=== PATIENT | male | born 1945 | race Caucasian/White ===

== ENCOUNTER 2025-04-30 14:34 | Inpatient (IN) | payer MEDICARE ==
[~2025-04-30] VITALS: Ht 167.6 cm; Wt 70.3 kg
[2025-04-30 14:45] VITALS: O2SAT 96
[2025-04-30] MEDS ORDERED: LOSA50TA39 PO (15:11)
[2025-04-30] MEDS ORDERED: AMLO-212 PO (15:11)
[2025-04-30] MEDS ORDERED: OLAN5TAB3 PO (15:11)
[2025-04-30 15:13] LABS: CALCIUM, SERUM 9.5 mg/dL (8.5-10.1); CREATININE 0.8 mg/dL (0.6-1.3); SODIUM SERUM 143 mmol/L (136-145); UREA NITROGEN, BLOOD 23 mg/dL (7-18)
[2025-04-30 15:14] LABS: PLATELET COUNT (AUTO) 215 K/uL (150-450); RED BLOOD CELL COUNT(AUTO) 4.54 MIL/uL (4.5-6.0); RED CELL DISTRIBUTION WIDTH 12.9 % (11.5-15.0); WHITE BLOOD COUNT (AUTO) 6.4 K/uL (4.3-11.0)
[2025-04-30 15:17] LABS: ASPARTATE AMINOTRANSFERASE 20 U/L (15-37); TOTAL PROTEIN, SERUM 7.3 g/dL (6.4-8.2)
[2025-04-30 15:19] LABS: ALCOHOL, BLOOD < 3 mg/dL (0-10)
[2025-04-30 15:53] LABS: APPEARANCE,URINE CLEAR (CLEAR); BLOOD, URINE TRACE-INTA Ery/uL (NEGATIVE); LEUKOCYTE ESTERASE ,URINE NEGATIVE (NEGATIVE); NITRITE, URINE NEGATIVE (NEGATIVE); UGLUCOSE NEGATIVE (NEGATIVE)
[2025-04-30 16:02] LABS: AMPHETAMINE, URINE NEGATIVE (NEGATIVE); BARBITURATE, URINE NEGATIVE (NEGATIVE); BENZODIAZEPINE, URINE NEGATIVE (NEGATIVE); CANNABINOID, URINE NEGATIVE (NEGATIVE); COCCAINE, URINE NEGATIVE (NEGATIVE); OPIATE, URINE NEGATIVE (NEGATIVE)
[2025-04-30 16:06] LABS: ADD URINE CULTURE NO; SQUAMOUS EPITHELIAL CELL,UR 0-2 /HPF (None Seen)
[2025-04-30] MEDS ORDERED: MAG HYDROX/AL HYDROX/SIMETH 30 ML UDC PO PRN (17:00)
[2025-04-30] MEDS ORDERED: LORAZEPAM 0.5 MG TABLET PO PRN (17:00)
[2025-04-30] MEDS ORDERED: MAGNESIUM HYDROXIDE 30 ML UDC PO PRN (17:00)
[2025-04-30] MEDS: BLOOD SUGAR DIAGNOSTIC 1 EACH STRIP IN ONE (17:29)
[2025-04-30 19:59] VITALS: BP 119/69; TEMP 97.7; O2SAT 98
[2025-05-01 08:00] VITALS: BP 129/72; TEMP 97.8; O2SAT 99
[2025-05-01 08:30] LABS: ASPARTATE AMINOTRANSFERASE 20.0 U/L (15-37); CALCIUM, SERUM 9.5 mg/dL (8.5-10.1); CREATININE 1.4 mg/dL (0.6-1.3); SODIUM SERUM 142.0 mmol/L (136-145); TOTAL PROTEIN, SERUM 7.4 g/dL (6.4-8.2); UREA NITROGEN, BLOOD 37.0 mg/dL (7-18)
[2025-05-01 08:32] LABS: LDL 71 mg/dL (0-99)
[2025-05-01] MEDS: LOSARTAN POTASSIUM 50 MG TABLET PO SCH (08:48)
[2025-05-01] MEDS: AMLODIPINE BESYLATE 5 MG TABLET PO SCH (08:49)
[2025-05-01 16:00] VITALS: BP 132/62; TEMP 98.6; O2SAT 99
[2025-05-01 18:18] LABS: CREATININE 1.0 mg/dL (0.6-1.3)
[2025-05-01 20:58] VITALS: BP 119/80; TEMP 97.5; O2SAT 100
[2025-05-01] MEDS ORDERED: QUETIAPINE FUMARATE 25 MG TABLET PO SCH (22:30)
[2025-05-01] MEDS ORDERED: DIVALPROEX SODIUM 125 MG TABLET.DR PO SCH (22:30)
[2025-05-02] MEDS: TEMAZEPAM 7.5 MG CAPSULE PO PRN (00:05)
[2025-05-02 07:54] VITALS: BP 132/79; TEMP 98.4; O2SAT 98
[2025-05-02] MEDS: DIVALPROEX SODIUM 125 MG TABLET.DR PO SCH (08:52)
[2025-05-02 16:00] VITALS: BP 114/76; TEMP 98.2; O2SAT 98
[2025-05-02 20:00] VITALS: BP 113/68; TEMP 97.8; O2SAT 100
[2025-05-02] MEDS: QUETIAPINE FUMARATE 25 MG TABLET PO SCH (21:24)
[2025-05-03 07:15] LABS: PLATELET COUNT (AUTO) 193 K/uL (150-450); RED BLOOD CELL COUNT(AUTO) 4.31 MIL/uL (4.5-6.0); RED CELL DISTRIBUTION WIDTH 12.8 % (11.5-15.0); WHITE BLOOD COUNT (AUTO) 6.2 K/uL (4.3-11.0)
[2025-05-03 07:33] LABS: ASPARTATE AMINOTRANSFERASE 28.0 U/L (15-37); CALCIUM, SERUM 9.2 mg/dL (8.5-10.1); CREATININE 1.1 mg/dL (0.6-1.3); PHOSPHORUS 3.8 mg/dL (2.5-4.9); SODIUM SERUM 144.0 mmol/L (136-145); TOTAL PROTEIN, SERUM 7.0 g/dL (6.4-8.2); UREA NITROGEN, BLOOD 57.0 mg/dL (7-18)
[2025-05-03 07:51] LABS: CREATINE KINASE, TOTAL 323.0 U/L (39-308)
[2025-05-03 08:00] VITALS: BP 121/60; TEMP 97.8; O2SAT 100
[2025-05-03] MEDS: ENSURE ENLIVE 237 ML LIQUID (VANILLA) PO SCH (13:21)
[2025-05-03 16:00] VITALS: BP 114/62; TEMP 97.9; O2SAT 98
[2025-05-03 20:21] VITALS: BP 124/52; TEMP 97.9; O2SAT 97
[2025-05-04 05:08] LABS: PTH, INTACT 36 pg/mL (15-65)
[2025-05-04 07:18] LABS: PLATELET COUNT (AUTO) 185 K/uL (150-450); RED BLOOD CELL COUNT(AUTO) 4.06 MIL/uL (4.5-6.0); RED CELL DISTRIBUTION WIDTH 12.6 % (11.5-15.0); WHITE BLOOD COUNT (AUTO) 5.8 K/uL (4.3-11.0)
[2025-05-04 07:38] LABS: ASPARTATE AMINOTRANSFERASE 24.0 U/L (15-37); CALCIUM, SERUM 8.7 mg/dL (8.5-10.1); CREATININE 0.9 mg/dL (0.6-1.3); SODIUM SERUM 140.0 mmol/L (136-145); TOTAL PROTEIN, SERUM 6.3 g/dL (6.4-8.2); UREA NITROGEN, BLOOD 48.0 mg/dL (7-18)
[2025-05-04 08:00] VITALS: BP 100/58; TEMP 97.7; O2SAT 98
[2025-05-04 16:00] VITALS: BP 107/60; TEMP 97.5; O2SAT 99
[2025-05-04 22:04] VITALS: BP 96/71; TEMP 97.8; O2SAT 98
[2025-05-05 08:00] VITALS: BP 113/61; TEMP 97.7; O2SAT 99
[2025-05-05 09:21] VITALS: BP 118/69
[2025-05-05 15:56] VITALS: BP 101/51; TEMP 98.2; O2SAT 99
[2025-05-05 16:36] VITALS: BP 106/59
[2025-05-05 20:29] VITALS: BP 103/69; TEMP 98; O2SAT 98
[2025-05-06 08:00] VITALS: BP 140/70; TEMP 97.7; O2SAT 99
[2025-05-06 16:00] VITALS: BP 111/56; TEMP 98.1; O2SAT 99
[2025-05-06 16:01] VITALS: BP 111/56; TEMP 98.1; O2SAT 100
[2025-05-06 20:00] VITALS: BP 110/59; TEMP 97.9; O2SAT 99
[2025-05-06] MEDS: QUETIAPINE FUMARATE 25 MG TABLET PO SCH (21:31)
[2025-05-07 07:10] LABS: *SPE A/G RATIO 1.2 (0.7-1.7); *SPE ALBUMIN 3.6 g/dL (2.9-4.4); *SPE ALPHA-1-GLOBULIN 0.2 g/dL (0.0-0.4); *SPE ALPHA-2-GLOBULIN 0.7 g/dL (0.4-1.0); *SPE BETA GLOBULIN 1.2 g/dL (0.7-1.3); *SPE GLOBULIN, TOTAL 3.0 g/dL (2.2-3.9); *SPE M-SPIKE Not Observed g/dL (Not Observed); *SPE PROTEIN TOTAL 6.6 g/dL (6.0-8.5); *SPEGAMMA GLOBULIN 1.0 g/dL (0.4-1.8)
[2025-05-07 08:00] VITALS: BP 132/71; TEMP 97.7; O2SAT 100
[2025-05-07 16:00] VITALS: BP 111/66; TEMP 98; O2SAT 96
[2025-05-07 20:26] VITALS: BP 122/72; TEMP 98; O2SAT 98
[2025-05-08 08:00] VITALS: BP 106/51; TEMP 98.2; O2SAT 99
[2025-05-08 08:03] LABS: CALCIUM, SERUM 9.1 mg/dL (8.5-10.1); CREATININE 0.8 mg/dL (0.6-1.3); SODIUM SERUM 142.0 mmol/L (136-145); UREA NITROGEN, BLOOD 50.0 mg/dL (7-18)
[2025-05-08 15:00] VITALS: BP 113/70; TEMP 98.1; O2SAT 98
[2025-05-08 20:03] VITALS: BP 139/86; TEMP 98; O2SAT 100
[2025-05-08] MEDS: ACETAMINOPHEN 325 MG TABLET PO PRN (21:10)
[2025-05-09 08:00] VITALS: BP 145/61; TEMP 98.1; O2SAT 98
[2025-05-09 20:00] VITALS: BP 115/69; TEMP 98; O2SAT 100
[2025-05-10 08:00] VITALS: BP 129/70; TEMP 98.6; O2SAT 99
[2025-05-10 16:00] VITALS: BP 107/62; TEMP 97.7; O2SAT 100
[2025-05-10] MEDS: DIVALPROEX SODIUM 125 MG TABLET.DR PO SCH (16:21)
[2025-05-10 20:00] VITALS: BP 124/56; TEMP 97.5; O2SAT 100
[2025-05-10] MEDS: DIVALPROEX SODIUM 125 MG TABLET.DR PO ONE (21:21)
[2025-05-11 08:00] VITALS: BP 120/69; TEMP 97.8; O2SAT 99
[2025-05-11 08:11] LABS: CALCIUM, SERUM 8.7 mg/dL (8.5-10.1); CREATININE 0.7 mg/dL (0.6-1.3); SODIUM SERUM 145.0 mmol/L (136-145); UREA NITROGEN, BLOOD 24.0 mg/dL (7-18)
[2025-05-11 08:58] LABS: VALPROIC ACID 11.0 ug/mL (50-100)
[2025-05-11 16:00] VITALS: BP 143/81; TEMP 97.7; O2SAT 98
[2025-05-11 20:18] VITALS: BP 108/61; TEMP 97.8; O2SAT 96
[2025-05-11] MEDS ORDERED: Z GUARD REMEDY 4 OZ OINT TP PRN (23:00)
[2025-05-12 08:31] VITALS: BP 115/60; TEMP 98.2; O2SAT 99
[2025-05-12] MEDS ORDERED: DIVA125C5 PO (11:17)
[2025-05-12] MEDS ORDERED: QUET25TA PO (11:18)
[2025-05-12 16:00] VITALS: BP 113/61; TEMP 97.9; O2SAT 99
[2025-05-12 20:29] VITALS: BP 96/62; TEMP 97.9; O2SAT 99
[2025-05-13 08:00] VITALS: BP 155/76; TEMP 97.8; O2SAT 98
[2025-05-13 09:00] VITALS: BP 155/76
== END 2025-05-13 14:07 | disposition home or self-care (01) | DRG 885 ==
LOC: ER 14:40 → GPS 16:25
PROVIDERS: ADMIT Nurse Practitioner Psychiatric/Mental Health
DX: F29 Unspecified psychosis not due to a substance or known physiological condition (principal); F03.92 Unspecified dementia, unspecified severity, with psychotic disturbance; I10 Essential (primary) hypertension; F10.10 Alcohol abuse, uncomplicated; F03.93 Unspecified dementia, unspecified severity, with mood disturbance; F03.94 Unspecified dementia, unspecified severity, with anxiety; F41.9 Anxiety disorder, unspecified; Z79.899 Other long term (current) drug therapy; R79.89 Other specified abnormal findings of blood chemistry; M89.8X9 Other specified disorders of bone, unspecified site; Y90.0 Blood alcohol level of less than 20 mg/100 ml; Z91.419 Personal history of unspecified adult abuse
CPT/HCPCS: 36415; 70450-TC; 80048-TC; 80053-TC; 80061-TC; 80076-TC; 80164-TC; 81001; 82550-TC; 82553; 82565-TC; 82962-TC; 83735-TC; 83970; 84100-TC; 84155; 84165; 84443-TC; 85025-TC; 87081-TC; 97110-TC; 97112-TC; 97116-TC; 97530-TC; G0480